=== PATIENT | female | born 1935 | race Caucasian/White ===

== ENCOUNTER 2017-01-13 07:25 | Day surgery (SDC) | payer OTHER ==
--- NOTE | ~2017-01-13 | EGD ---
EGD REPORT [facility] [address] [place] [address] NAME: JEFFREY LEWIS : [birth year] STATUS : [facility]#: [id number] AGE: 81 ADM/REG DATE : 01/13/17 MR#: [id number] REPORT SERV DATE: 01/20/17 DICTATED BY: DATE: REPORT STATUS : Draft TRANSCRIBED BY: [employer] DATE: 01/20/17 [facility] Center Patient Name: Jeffrey Lewis Date of : 1935 Attending MD: ANGEL TIMMONS MD Procedure Date No Time: 01/13/2017 Procedure: Upper GI endoscopy Indications: Portal hypertension with suspected esophageal varices Referring MD: Erika Vega MD, [facility] Medicines: Monitored Anesthesia Care Complications: No immediate complications. Procedure: Pre-Anesthesia Assessment: - ASA Grade Assessment: III - A patient with severe systemic disease. After obtaining informed consent, the endoscope was passed under direct vision. Throughout the procedure, the patient's blood pressure, pulse, and oxygen saturations were monitored continuously. The GIF [id number] was introduced through the mouth, and advanced to the second part of duodenum. The upper GI endoscopy was accomplished without difficulty. The patient tolerated the procedure well. Findings: A diminutive hiatus hernia was present. No other significant abnormalities were identified in a careful examination of the esophagus. The Z-line was regular and was found 37 cm from the incisors. There is no endoscopic evidence of Obrien's esophagus, areas of erosion, ulcerations or varices in the entire esophagus. Mild portal hypertensive gastropathy was found in the gastric fundus and in the gastric body. No other significant abnormalities were identified in a careful examination of the stomach. There is no endoscopic evidence of bleeding, ulceration or varices in the entire examined stomach. The examined duodenum was normal. There is no endoscopic evidence of inflammation, mucosal abnormalities or ulceration in the entire examined duodenum. The cardia and gastric fundus were normal on retroflexion. Impression: - Hiatus hernia. - Z-line regular, 37 cm from the incisors. - Portal hypertensive gastropathy. - Normal examined duodenum. EGD REPORT [address] [address] NAME: JEFFREY LEWIS : [birth year] STATUS : [facility] PAT#: [id number] AGE: 81 ADM/REG DATE : 01/13/17 MR#: [id number] REPORT SERV DATE: 01/20/17 DICTATED BY: DATE: REPORT STATUS : Draft TRANSCRIBED BY: [employer] DATE: 01/20/17 Recommendation: - Patient has a contact number available for emergencies. The signs and symptoms of potential delayed complications were discussed with the patient. Return to normal activities tomorrow. Written discharge instructions were provided to the patient. - Return to previous diet. - Discharge patient to home. - Continue present medications. - Repeat the upper endoscopy in 2 years for surveillance. Procedure Code(s): --- Professional --- 81498, Esophagogastroduodenoscopy, flexible, transoral; diagnostic, including collection of specimen(s) by brushing or washing, when performed (separate procedure) Diagnosis Code(s): --- Professional --- K44.9, Diaphragmatic hernia without obstruction or gangrene K76.6, Portal hypertension K31.89, Other diseases of stomach and duodenum CPT copyright 2013 [employer]. All rights reserved. The codes documented in this report are preliminary and upon senior underwriter review may be revised to meet current compliance requirements. ANGEL TIMMONS MD 01/20/2017 1:22 PM This report has been signed electronically. Number of Addenda: 0 Note Initiated On: 01/13/2017 8:30 AM Scope Withdrawal Time 0 hours 0 minutes 0 seconds [id number] [id number]
[~2017-01-13 07:25] MED LIST: AMITIZA24 PO; APRES50 PO; ASAB PO; CALTRA600D PO; CAT2 PO; CO Q-10100 MG PO; COREG3 PO; COZ25 PO; COZ50 PO; CRANBERRY PO; CYMBALTA30 PO; DURA75 TOP; FERROUS SULF325 M1 PO; GLUCOTRO10 PO; HCTZ25B PO; HYDRALAZINE100 MG PO; HYDROCHLOROT25 MG PO; IMDUR30 PO; L40 PO; LANTUS SC; LOFIBRA54 MG PO; LORCET PO; LORTAB10 PO; MEGA D3 PO; MICARDIS40 PO; MOBIC15 MG PO; NITROSTAT0.4 MG SL; NOR10 PO; NORV10 PO; NORV25 PO; NORV5 PO; NOVOLOG SC; NSAIDS; PLAVIX PO; PREV30 PO; PREVALITE4 G1 PO; PROLOP100 PO; PROTONIX PO; ROXICODONE15 MG PO; SPIRO50 PO; TEG200 PO; VERELAN120 MG PO; VIT C PO; VIT D PO; VITAMIN D1000 UNI1 PO; ZOFRAN4 PO; [UNRECOGNIZED DRUG - CODE] PO; [UNRECOGNIZED DRUG - OTHER] PO
== END 2017-01-13 23:59 | disposition home or self-care (01) ==
LOC: DMU 07:25
PROVIDERS: Internal Medicine Gastroenterology
PROC: 0DJ08ZZ Inspection of Upper Intestinal Tract, Via Natural or Artificial Opening Endoscopic (ICD-10-PCS; principal; 2017-01-13 09:00)
DX: K76.6 Portal hypertension (principal); I10 Essential (primary) hypertension; K74.60 Unspecified cirrhosis of liver; F03.90 Unspecified dementia, unspecified severity, without behavioral disturbance, psychotic disturbance, mood disturbance, and anxiety; Z79.899 Other long term (current) drug therapy; Z79.82 Long term (current) use of aspirin; Z88.0 Allergy status to penicillin; Z88.1 Allergy status to other antibiotic agents
CPT/HCPCS: 82962